=== PATIENT | male | born 1950 | race Caucasian/White ===

== ENCOUNTER → 2018-02-04 | Outpatient (CLI) | payer MEDICARE, OTHER | LOC: COL.LAB 11:18 | DX: E53.8 Deficiency of other specified B group vitamins (principal) ==

== ENCOUNTER → 2018-06-13 | Outpatient (CLI) | payer MEDICARE, OTHER | LOC: ZCOL.LAB 17:05 | DX: E53.8 Deficiency of other specified B group vitamins (principal); Z90.89 Acquired absence of other organs; Z98.890 Other specified postprocedural states ==

== ENCOUNTER → 2018-07-25 | Outpatient (CLI) | payer MEDICARE, OTHER | LOC: ZCOL.LAB 17:38 → COL.LAB 17:38 | DX: R19.7 Diarrhea, unspecified (principal) ==

== ENCOUNTER 2021-01-03 13:37 | Outpatient (CLI) | payer MEDICARE, OTHER ==
[~2021-01-03] VITALS: Ht 190.5 cm; Wt 125.8 kg
[2021-01-03 13:50] VITALS: BP 98/59; PULSE 60; TEMP 98.4
[2021-01-03] MEDS ORDERED: ZYLOPRIM 300MG300 MG PO (15:22)
[2021-01-03] MEDS ORDERED: SINEMET 25/101 UDTAB PO (15:22)
[2021-01-03] MEDS ORDERED: HYZAAR 50-12.1 UDTAB PO (15:23)
[2021-01-03] MEDS ORDERED: CRESTOR5 MG PO (15:24)
[2021-01-03] MEDS ORDERED: SYNTHROID0.05 MG/TA PO (15:24)
[2021-01-03] MEDS ORDERED: KAPSPARGO SPRIN25 MG PO (15:25)
[2021-01-03] MEDS ORDERED: FLOMAX 0.40.4 MG/CAP PO (15:25)
[2021-01-03] MEDS ORDERED: LASIX 40MG TABL40 MG PO (15:26)
== END 2021-01-03 15:57 | disposition home or self-care (01) ==
LOC: EUO 13:37
DX: N17.9 Acute kidney failure, unspecified (principal)
CPT/HCPCS: J7030

== ENCOUNTER 2021-01-20 10:50 | Inpatient (IN) | payer MEDICARE, OTHER ==
[~2021-01-20] VITALS: Ht 194.3 cm; Wt 117.0 kg
[~2021-01-20 10:50] MED LIST: CRESTOR5 MG PO; FLOMAX 0.40.4 MG/CAP PO; HYZAAR 50-12.1 UDTAB PO; KAPSPARGO SPRIN25 MG PO; LASIX 40MG TABL40 MG PO; SINEMET 25/101 UDTAB PO; SYNTHROID0.05 MG/TA PO; ZYLOPRIM 300MG300 MG PO
[2021-02-10] VITALS (11 sets, daily range): BP systolic 114–162; BP diastolic 66–85; PULSE 60–79; TEMP 97.4–98.4
[2021-02-10] MEDS ORDERED: TOPROL XL 25MG25 MG PO (06:20)
[2021-02-10] MEDS ORDERED: B COMPLEX & B121 TAB PO (06:22)
[2021-02-10] MEDS ORDERED: OMNICEF 300MG300 MG PO (06:24)
[2021-02-10 06:32] LABS: BASO # 0.1 (0.0-0.2); BASO % 0.9 % (0.0-2.0); EOS # 0.3 (0.0-0.7); EOS % 5.2 % (0-4.0); GRAN # 3.8 (1.4-6.5); GRAN % 65.4 % (42.2-75.2); LYMPH # 1.2 (1.2-3.4); LYMPH % 20.7 % (20.0-51.0); MEAN CELL VOLUME 98 fl (80.0-100.0); MEAN CORPUSCULAR HGB CONC 32 g/dl (33.0-37.0); MEAN PLATELET VOLUME 9.7 fl (7.4-10.4); MONO # 0.4 (0.1-0.6); MONO % 7.5 % (1.7-9.3); PLATELET COUNT 165 K/mm3 (130-400); RED BLOOD COUNT 3.11 M/mm3 (4.20-5.60); REDCELL DISTRIBUTION WIDTH-CV 14.9 % (11.5-14.5)
[2021-02-10 06:44] LABS: HEMOGLOBIN 9.9 g/dl (13.5-18.0)
[2021-02-10 06:45] LABS: HEMATOCRIT 30.6 % (42.0-52.0); MEAN CORPUSCULAR HEMOGLOBIN 32 pg (27.0-31.0)
[2021-02-10 06:54] LABS: ALKALINE PHOSPHATASE 65 U/L (0-750); ANION GAP 9 mmol/L; AST,SGOT 12 U/L (5-34); BILIRUBIN,TOTAL 0.5 mg/dL (0.2-1.2); BLOOD UREA NITROGEN 24 mg/dL (8-26); CARBON DIOXIDE 24 mEq/L (23-31); CHLORIDE 106 mmol/L (98-107); CREATININE, serum 1.42 mg/dL (0.72-1.25); GLUCOSE 95 mg/dL (70-99); POTASSIUM 4.2 mmol/L (3.5-4.5); SODIUM 139 mmol/L (136-145); TOTAL PROTEIN 6.5 gm/dL (6.2-8.1)
[2021-02-10 06:57] LABS: ALANINE AMINOTRANSFERASE < 6 U/L (0-55)
--- NOTE | 2021-02-10 12:48 | NUR ---
Pt arrived into room 349, his is at bedside. Pt is A/O x4. He denies any pain at this time. No N/V, tolerating ice cubes and water without issues. Discussed advancing diet as tolerating. POC discussed with patient and his , pt will ambulate in the hallway and sit up in the recliner once fully awake. Drain in place to L abdomen, no drainage present at this time. Tania DD. SCD's on and in place. No needs at this time. Call light within reach.
--- NOTE | 2021-02-10 15:30 | NUR ---
Received report from KWAME Sanches. Pt resting in bed, rates pain 2/10 at this time. Lap sites x5 with edges well approximated. JOO to bulb suction, no output at this time. Marin to dependent drainage with red tinged output. Pt tolerating clear liquids, states he is not hungry at this time. VSS
--- NOTE | 2021-02-10 23:30 | NUR ---
Patient alert and oriented. Patient reports pain is minimal and denies need for pain meds. Patient denies N/V. Abdomen area has x5 incision site with edges well approximated. No s/s of infection noted. JOO drain in place. No output noted. Marin catheter draining blood-tinged urine. Call light in reach. Will continue to monitor.
[2021-02-11 03:53] VITALS: BP 141/70; PULSE 59; TEMP 97.8
--- NOTE | 2021-02-11 06:10 | NUR ---
Patient has no c/o pain throughout the night. Patient tolerating PO food. [place] juice and crackers provided this morning per patient request. Call light in reach.
[2021-02-11 07:11] LABS: BASO % 0.1 % (0.0-2.0); GRAN # 10.5 (1.4-6.5); GRAN % 87.8 % (42.2-75.2); LYMPH # 0.7 (1.2-3.4); LYMPH % 5.7 % (20.0-51.0); MEAN CELL VOLUME 97 fl (80.0-100.0); MEAN CORPUSCULAR HEMOGLOBIN 32 pg (27.0-31.0); MEAN CORPUSCULAR HGB CONC 33 g/dl (33.0-37.0); MEAN PLATELET VOLUME 10.6 fl (7.4-10.4); MONO # 0.7 (0.1-0.6); MONO % 5.8 % (1.7-9.3); PLATELET COUNT 185 K/mm3 (130-400); RED BLOOD COUNT 3.13 M/mm3 (4.20-5.60); REDCELL DISTRIBUTION WIDTH-CV 14.6 % (11.5-14.5)
[2021-02-11 07:14] LABS: HEMATOCRIT 30.3 % (42.0-52.0)
[2021-02-11 07:30] LABS: CALCIUM 9.2 mg/dL (8.4-10.2); CREATININE, serum 1.46 mg/dL (0.72-1.25); POTASSIUM 4.8 mmol/L (3.5-4.5)
[2021-02-11 07:47] VITALS: BP 109/57; PULSE 63; TEMP 98.2
--- NOTE | 2021-02-11 08:25 | NUR ---
Patient up to the chair this am and did well. Int. General diet breakfast ordered. Denies nausea. pain managed with eras protocol. Marin to dd with adequate output.
[2021-02-11 11:32] VITALS: BP 106/64; PULSE 57; TEMP 97.5
--- NOTE | 2021-02-11 13:45 | NUR ---
rounded. Discharge orders obtained. Patient has had a peoples in the past & reviewed peoples education. Patient seems knowledgable. Dominguez drain removed & he tolerated well. Int DC. Sinmet prior to discharge per request. Patient wheeled out with all belongings. His taking him home.
== END 2021-02-11 13:50 | disposition home or self-care (01) | DRG 708 ==
LOC: INPTSU 02-10 05:23 → SURG 02-10 05:23
PROVIDERS: ADMIT Urology
PROC: 0VT04ZZ Resection of Prostate, Percutaneous Endoscopic Approach (ICD-10-PCS; principal; 2021-02-11)
DX: C61 Malignant neoplasm of prostate (principal); N40.1 Benign prostatic hyperplasia with lower urinary tract symptoms
CPT/HCPCS: A4314; A9284; J0690; J1100; J2175; J2405; J2704; J3010; J7120

== ENCOUNTER 2024-02-13 09:45 | Outpatient (RCR) | payer MEDICARE, OTHER ==
[~2024-02-13 09:45] MED LIST changes: +ASPIRIN 81M81 MG/TA2 PO; +B COMPLEX & B121 TAB PO; +B-121000 MCG PO; +BETAPACE 80MG80 MG PO; +CEPHALEXIN500 M1 PO; +COGNIQUIL CAPS1 EACH PO; +COZAAR 25MG25 MG/TAB PO; +ELIQUIS 5MG PO; +EPA FISH OIL1 SGL PO; +IRON TABLETS325 MG PO; +NATURAL E400 IU PO; +OMNICEF 300MG300 MG PO; +REQUIP XL12 MG PO; +TIROSINT75 MC1 PO; +TOPROL XL 25MG25 MG PO; +VITAMINC1000TA PO
== END 2024-02-17 | disposition home or self-care (01) ==
LOC: WSST
DX: R49.0 Dysphonia (principal)